=== PATIENT | female | born 1995 | race Caucasian/White ===

== ENCOUNTER 2019-02-24 03:38 | Emergency (ER) | payer OTHER ==
[2019-02-24] MEDS: ACETAMINOPHEN 500 MG TAB PO (04:47)
[2019-02-24 05:38] LABS: TROPONIN-I < 0.012 ng/ml (0.000-0.120)
== END 2019-02-24 06:17 | disposition home or self-care (01) ==
LOC: FTE 06:17
DX: R07.89 Other chest pain (principal)
CPT/HCPCS: 71045; 81025; 84484; 99284-25